=== PATIENT | female | born 1985 | race Caucasian/White ===

== ENCOUNTER 2017-04-15 11:47 | Emergency (ER) | payer BC ==
[~2017-04-15] VITALS: Ht 167.6 cm; Wt 59.4 kg
[2017-04-15 13:00] VITALS: BP 104/67
[2017-04-15 13:06] LABS: HEMATOCRIT 38.2 % (37.0-47.0); HEMOGLOBIN 12.8 G/DL (12.0-16.0); MEAN CORPUSCULAR VOLUME 90 FL (80-99); PLATELET COUNT 284 K/UL (150-450); RED BLOOD COUNT 4.23 M/UL (4.20-5.40); WHITE BLOOD COUNT 13.2 K/UL (4.8-10.8)
[2017-04-15 13:16] LABS: APPEARANCE,URINE SLIGHTLY CLOUDY; BILIRUBIN, URINE NEGATIVE (NEGATIVE); GLUCOSE, URINE (UA) NEGATIVE (NEGATIVE); KETONES,URINE NEGATIVE (NEGATIVE); LEUKOCYTE ESTERASE ,URINE 1+ (NEGATIVE); NITRITE,URINE NEGATIVE (NEGATIVE); PH,URINE 6 (4.5-8.0); PROTEIN,URINE 2+ (NEGATIVE); UROBILINOGEN,URINE 1 MG/DL (0.0-1.0)
[2017-04-15 13:21] LABS: COLOR,URINE YELLOW
[2017-04-15 13:28] LABS: ANION GAP 11 mmol/L (5-15); BLOOD UREA NITROGEN 11 mg/dL (7-18); CALCIUM 8.5 MG/DL (8.5-10.1); CARBON DIOXIDE 21 MMOL/L (21-32); CHLORIDE 103 MMOL/L (98-107); CREATININE 0.7 MG/DL (0.55-1.30); POTASSIUM 3.8 MMOL/L (3.5-5.1); SODIUM 135 MMOL/L (136-145)
[2017-04-15 13:41] LABS: ALANINE AMINOTRANSFERASE 63 U/L (12-78); ALBUMIN/GLOBULIN RATIO 1.3 (1.0-2.7); ALKALINE PHOSPHATASE 44 U/L (46-116); ASPARTATE AMINO TRANSFERASE 25 U/L (15-37); BILIRUBIN,TOTAL 0.8 MG/DL (0.2-1.0)
[2017-04-15] MEDS ORDERED: KEFLEX250 M1 PO (15:14)
[2017-04-15 15:40] VITALS: BP 103/65
--- NOTE | 2017-04-15 23:21 | Emergency Room Report ---
History of Present Illness General Chief Complaint: Syncope Source: Patient, EMS Present Illness HPI The patient is a at approximately 6 weeks gestation by dates brought in by ambulance for syncope. She was at her OB clinic when this occurred. She was sitting and did not hit her head. Loss of consciousness lasted seconds per bystanders. She denies medical history. She denies any pain including abdominal pain. She states that she has been eating and drinking normally. She does admit to increased urinary frequency as well as some dysuria. His other symptoms including vomiting, fever, chills, dizziness, blurred vision, back pain , vaginal discharge, vaginal bleeding. Allergies: Coded Allergies: ACETAMINOPHEN (Verified Allergy, Unknown, 04/15/17) HYDROCODONE (Verified Allergy, Unknown, 04/15/17) Patient History Past Medical History: see triage record Pertinent Family History: none Reviewed Nursing Documentation: PMH: Agreed, PSxH: Agreed Nursing Documentation-PMH Past Medical History: No Stated History Review of Systems All Other Systems: negative except mentioned in HPI Physical Exam Vital Signs Date Time Temp Pulse Resp B/P (MAP) Pulse Ox O2 Delivery O2 Flow Rate FiO2 04/15/17 11:41 97.0 72 20 102/70 99 Room Air Sp02 EP Interpretation: reviewed, normal General Appearance: no apparent distress, alert, GCS 15, non-toxic Head: normocephalic, atraumatic Eyes: bilateral eye normal inspection, bilateral eye PERRL ENT: hearing grossly normal, normal pharynx, no angioedema, normal voice Neck: full range of motion, supple/symm/no masses Respiratory: chest non-tender, lungs clear, normal breath sounds, speaking full sentences Cardiovascular #1: regular rate, rhythm, no edema Gastrointestinal: normal bowel sounds, soft, non-distended, no guarding, no rebound, tenderness - RLQ and suprapubic Musculoskeletal: back normal, gait/station normal, normal range of motion, non- tender Neurologic: alert, oriented x3, responsive, motor strength/tone normal, sensory intact, speech normal Psychiatric: judgement/insight normal, memory normal, mood/affect normal, no suicidal/homicidal ideation Skin: normal color, no rash, warm/dry, well hydrated Medical Decision Making PA Attestation Dr. Wallace is my supervising physician. Patient management was discussed with my supervising physician Diagnostic Impression: Primary Impression: Urinary tract infection Qualified Codes: N30.00 - Acute cystitis without hematuria Additional Impressions: First trimester Syncope Qualified Codes: R55 - Syncope and collapse ER Course The patient is a at approximately 6 weeks gestation by dates brought in by ambulance for syncope Differential diagnoses considered include but not limited to Early , threatened , ectopic , hemorrhagic cyst, dehydration, vasovagal syncope, hypoglycemia, among others PE: Vitals WNL. NAD A and O. x3 HEENT exam unremarkable RRR Lungs are clear to auscultation bilaterally Abdomen soft. TTP over RLQ and suprapubic regions CBC: There is leukocytosis. No edema. Otherwise unremarkable CMP unremarkable. No signs of dehydration Urinalysis unremarkable. No infection Beta hCG of 3 Abdominal ultrasound shows appendix with no signs of appendicitis. Otherwise unremarkable OB ultrasound shows IUP at approximately 7 weeks gestation with heart rate of 144 Beta hCG of 3 with clear findings of viable the ultrasound is very likely a lab error The patient and her were informed of these findings and will followup with OB as soon as possible. ER precautions are given Labs Test 04/15/17 12:35 White Blood Count 13.2 K/UL (4.8-10.8) Red Blood Count 4.23 M/UL (4.20-5.40) Hemoglobin 12.8 G/DL (12.0-16.0) Hematocrit 38.2 % (37.0-47.0) Mean Corpuscular Volume 90 FL (80-99) Mean Corpuscular Hemoglobin 30.2 PG (27.0-31.0) Mean Corpuscular Hemoglobin Concent 33.4 G/DL (32.0-36.0) Red Cell Distribution Width 10.0 % (11.6-14.8) Platelet Count 284 K/UL (150-450) Mean Platelet Volume 7.6 FL (6.5-10.1) Neutrophils (%) (Auto) % (45.0-75.0) Lymphocytes (%) (Auto) % (20.0-45.0) Monocytes (%) (Auto) % (1.0-10.0) Eosinophils (%) (Auto) % (0.0-3.0) Basophils (%) (Auto) % (0.0-2.0) Differential Total Cells Counted 100 Neutrophils % (Manual) 88 % (45-75) Lymphocytes % (Manual) 3 % (20-45) Monocytes % (Manual) 9 % (1-10) Eosinophils % (Manual) 0 % (0-3) Basophils % (Manual) 0 % (0-2) Band Neutrophils 0 % (0-8) Platelet Estimate Adequate Platelet Morphology Normal Red Blood Cell Morphology Normal Prothrombin Time 10.6 SEC (9.30-11.50) Prothromb Time International Ratio 1.0 (0.9-1.1) Activated Partial Thromboplast Time 21 SEC (23-33) Urine Color Yellow Urine Appearance Slightly cloudy Urine pH 6 (4.5-8.0) Urine Specific [place] 1.025 (1.005-1.035) Urine Protein 2+ (NEGATIVE) Urine Glucose (UA) Negative (NEGATIVE) Urine Ketones Negative (NEGATIVE) Urine Occult Blood Negative (NEGATIVE) Urine Nitrite Negative (NEGATIVE) Urine Bilirubin Negative (NEGATIVE) Urine Urobilinogen 1 MG/DL (0.0-1.0) Urine Leukocyte Esterase 1+ (NEGATIVE) Urine RBC 0-2 /HPF (0 - 2) Urine WBC 2-4 /HPF (0 - 2) Urine Squamous Epithelial Cells Few /LPF (NONE/OCC) Urine Amorphous Sediment Few /LPF (NONE) Urine Bacteria Few /HPF (NONE) Urine Mucus Moderate /LPF (NONE/OCC) Sodium Level 135 MMOL/L (136-145) Potassium Level 3.8 MMOL/L (3.5-5.1) Chloride Level 103 MMOL/L (98-107) Carbon Dioxide Level 21 MMOL/L (21-32) Anion Gap 11 mmol/L (5-15) Blood Urea Nitrogen 11 mg/dL (7-18) Creatinine 0.7 MG/DL (0.55-1.30) Estimat Glomerular Filtration Rate > 60 mL/min (>60) Glucose Level 109 MG/DL (74-106) Calcium Level 8.5 MG/DL (8.5-10.1) Total Bilirubin 0.8 MG/DL (0.2-1.0) Aspartate Amino Transf (AST/SGOT) 25 U/L (15-37) Alanine Aminotransferase (ALT/SGPT) 63 U/L (12-78) Alkaline Phosphatase 44 U/L (46-116) Total Protein 7.1 G/DL (6.4-8.2) Albumin 4.0 G/DL (3.4-5.0) Globulin 3.1 g/dL Albumin/Globulin Ratio 1.3 (1.0-2.7) Lipase 132 U/L (73-393) Human Chorionic Gonadotropin, Quant 3 mIU/mL (1-6) Lab Results Impression CBC: There is leukocytosis. No edema. Otherwise unremarkable CMP unremarkable. No signs of dehydration Urinalysis unremarkable. No infection Beta hCG of 3 EKG Diagnostic Results EP Interpretation: NSR. No acute changes Rate: normal - 79 Rhythm: NSR ST Segments: no acute changes ASA given to the pt in ED: No PA Scribe Text EKG was reviewed and read with my supervising physician. No acute ST segment changes are seen. Normal rate and rhythm. No acute changes. CT/MRI/US Diagnostic Results CT/MRI/US Diagnostic Results #1: Imaging Test Ordered: Abd US Impression No signs of appendicitis. Otherwise unremarkable CT/MRI/US Diagnostic Results #2: Imaging Test Ordered: OB ultrasound Impression There is an IUP at approximately 7 weeks by length. heart rate 144 Last Vital Signs Date Time Temp Pulse Resp B/P (MAP) Pulse Ox O2 Delivery O2 Flow Rate FiO2 04/15/17 15:40 97.0 92 18 103/65 100 Room Air Status: improved Disposition: HOME, SELF-CARE Condition: Improved Scripts Cephalexin (Keflex) 250 Mg Capsule 250 MG PO Q6HR for 7 Days, CAP Prov: JOSELYN SOLOMON 04/15/17 Patient Instructions: First Trimester of , Syncope Additional Instructions: I discussed my findings with the patient. All questions and concerns have been answered. Treatment and medication compliance have been addressed. Return to ED if symptoms worsen, new symptoms arise, or if needed for any reason. Patient verbalized understanding of discharge instructions. Please see your [facility] as soon as possible for further evaluation and treatment. JOSELYN SOLOMON Apr 15, 2017 23:20
--- NOTE | 2017-04-18 00:02 | Cardiology Report ---
APPROVED REPORT EKG Measurement Heart [id number] Normal sinus rhythm Low voltage QRS Nonspecific T wave abnormality Abnormal ECG
--- NOTE | 2017-04-19 10:35 | Diagnostic Imaging Report ---
Indication: Positive and pain Technique: Transabdominal and endovaginal pelvic ultrasound Comparison: None Findings: Uterus measures approximately 12.0 x 5.1 cm. There is a single live intrauterine with estimated gestational age of 7 weeks 2 days by crown-rump length measuring 1.2 cm. heart tones are seen at 144 bpm. Bilateral ovaries are seen with color and Doppler flow. Yolk sac is visualized. Impression: Single live intrauterine with estimated gestational age of 7 weeks 2 days by crown-rump length. heart rate of 144 bpm.
--- NOTE | 2017-04-19 10:35 | Diagnostic Imaging Report ---
Indication: Abdominal pain Technique: Ultrasound of the abdomen. Comparison: None Findings: Appendix is not adequately visualized. The pancreas is incompletely visualized. Visualized portions are unremarkable. The liver is normal in size and echogenicity. No focal liver lesions are identified. Visualized portions of the main portal vein and the hepatic veins are grossly unremarkable although incompletely evaluated. The gallbladder is unremarkable without evidence of stones. Gallbladder wall thickness is within normal limits. Sonographic King's is negative. Common bile duct measures 6 mm. Bilateral kidneys demonstrate normal echogenicity. No focal renal lesions are seen. There is no hydronephrosis. No echogenic renal stones are identified. The spleen is normal in size and echogenicity. The visualized aorta is normal in caliber. Visualized portions of the inferior vena cava are unremarkable. Impression: No evidence of gallstones. Inadequate visualization of the appendix sonographically. Further evaluation recommended as indicated.
== END 2017-04-15 15:40 | disposition home or self-care (01) ==
LOC: EDBD 11:47 → EMR 12:28
DX: O23.41 Unspecified infection of urinary tract in pregnancy, first trimester (principal); R55 Syncope and collapse; Z88.6 Allergy status to analgesic agent
CPT/HCPCS: 36415; 76700; 76801; 80053; 81003; 83690; 84702; 85007; 85025; 85610; 85730; 93005; 96374; 99284